=== PATIENT | male | born 1955 | race Caucasian/White ===

== ENCOUNTER 2016-09-21 08:05 | Inpatient (IN) ==
--- NOTE | 2016-09-21 08:33 | PROVIDER DOCUMENTATION ---
HPI-Respiratory General - General Chief Complaint: Shortness of Breath Stated Complaint: SOB Time Seen by Provider: 09/21/16 08:19 Source: patient Allergies/Adverse Reactions: Patient Allergies Allergy/AdvReac Type Severity Reaction Status Date / Time acetaminophen [From NyQuil] Allergy Mild HIVES Verified 04/01/16 06:01 dextromethorphan HBr * Allergy Mild HIVES Verified 04/01/16 06:01 [From NyQuil] doxylamine succinate * Allergy Mild HIVES Verified 04/01/16 06:01 [From NyQuil] pseudoephedrine HCl * Allergy Mild HIVES Verified 04/01/16 06:01 [From NyQuil] Home Medications: Home Medication List Medication Instructions Recorded Confirmed Last Taken Type LISINOpril [Prinivil] 10 mg PO DAILY 02/05/16 04/01/16 03/31/16 History ATORVAstatin [Lipitor] 20 mg PO QHS 03/25/16 04/01/16 03/31/16 18:30 History Metoprolol [Lopressor] 25 mg PO DAILY 03/25/16 04/01/16 04/01/16 04:30 History Aspirin 81 mg PO DAILY #0 04/02/16 04/01/16 03/24/16 Rx Hydrocodone/Acetaminophen [[place] 1 each PO Q6HR PRN #20 tablet 04/02/16 Unknown Rx 10-325 Tablet] Oxybutynin [Ditropan] 5 mg PO TID PRN #15 tablet 04/02/16 Unknown Rx Ciprofloxacin HCl [Cipro] 500 mg PO BID #6 tablet 04/05/16 Unknown Rx - History of Present Illness-Resp Nature of Presenting Problem: Pt has resection of the tail of the pancreas and splenectomy by Dr Allison at [facility] 1 week ago. He was supposed to call him today for a fu appointment, but on Wednesday, 2 days ago he experienced an increasing SOB whcich finally prompted him to come in and be see today. He has been sedentary since the surgery mostly sitting in his recliner or in bed. He suspect for possible PE Onset/Duration: reports: gradual Timing: reports: still present Review of Systems - Adult - REVIEW OF SYSTEMS - ADULT Constitutional: denies: chills, fever Eyes: denies: discharge, decreased vision, blurred vision Ears, Nose, Mouth & Throat: denies: ear pain, nose pain, throat pain Cardiovascular: denies: chest pain, heart murmur, irregular heart rate Respiratory: reports: dyspnea on exertion, shortness of breath. denies: chronic cough, pleurisy Gastrointestinal: denies: abdominal pain, constipation, diarrhea, nausea, vomiting Genitourinary: denies: discharge, frequent UTI's Musculoskeletal: denies: bone pain, joint pain Integumentary: denies: mole changes, rash Neurological: denies: dizziness/vertigo, loss of balance, tremors Psychiatric: reports: no symptoms reported Endocrine: denies: goiter, cold intolerance, heat intolerance Hematologic/Lymphatic: denies: low blood count, lymphedema Allergic/Immunologic: denies: asthma, eczema, frequent infections Past History - Adult - PAST MEDICAL HISTORY-ADULT Review of Records: reports: Nursing Assessment Review, Medications Reviewed - PRIOR SURGERIES/PROCEDURES Surgical/Procedure History: reports: orthopedic (extremity), joint replacement - IMMUNIZATION STATUS Childhood Immunizations: See Nurse Assessment Flu Vaccine: See Nurse Assessment Physical Exam-General - PHYSICAL EXAM-ADULT Initial Vital Signs Reviewed: Yes - CONSTITUTIONAL General Appearance: appears well, alert, mild distress - EYES Eyes: PERRL/EOMI, pink conjunctivae - HEAD, EARS, NOSE, MOUTH & THROAT HENMT: normocephalic/atraumatic, moist mucous membranes, normal ENT inspection - NECK Neck: non-tender, full range of motion, supple, normal inspection - RESPIRATORY Respiratory: chest non-tender, lungs clear, normal breath sounds, no pleuratic chest pain, no respiratory distress, no accessory muscle use - CARDIOVASCULAR Cardiovascular: normal peripheral pulses, regular rate, rhythm, no edema, no gallop, no JVD, no murmur - GASTROINTESTINAL (ABDOMEN) Abdominal Exam: normal bowel sounds, non tender, soft, no organomegaly, no pulsatile mass - LYMPHATIC Lymphatic: no adenopathy - MUSCULOSKELETAL Back Exam: normal inspection, no CVA tenderness, no vertebral tenderness Extremity: normal range of motion, non-tender, normal gait, normal inspection, no pedal edema, no calf tenderness, normal capillary refill - SKIN Integumentary: normal color, normal turgor, warm/dry - NEUROLOGIC Neurologic: ear specialist II-XII nml as tested, grossly normal, no motor/sensory deficits , abnormal cerebellar tests, abnormal ear specialist II-XII - PSYCHIATRIC Psych/Mental Status: normal mood/affect, normal thought content, normal thought process, oriented x 3 Progress - PLAN OF CARE/RESULTS Progress/Plan/Lab Results: Vital Signs - 8 hr 09/21/16 08:10 Temperature 98.2 F Pulse Rate 98 H Respiratory Rate 18 Blood Pressure 145/74 O2 Sat by Pulse Oximetry 89 L Orders Category Date Time Status Cardiac Monitoring DIRECTED Care 09/21/16 08:26 Ordered Oxygen Therapy- ED Nursing DIRECTED Care 09/21/16 08:26 Ordered Saline Loc NOW Care 09/21/16 08:26 Ordered CHEST-2 VIEWS [RAD] Stat Exams 09/21/16 08:26 Ordered CBC WITH ELECTRONIC DIFF [HEME] Stat Lab 09/21/16 08:26 Uncollected CK PROFILE [SP CHEM] Stat Lab 09/21/16 08:26 Uncollected COMPREHENSIVE METABOLIC PANEL [CHEM] Stat Lab 09/21/16 08:26 Uncollected D-DIMER [CHEM] Stat Lab 09/21/16 08:26 Uncollected MAGNESIUM [CHEM] Stat Lab 09/21/16 08:26 Uncollected PRO B-NATRIURETIC PEPTIDE Stat Lab 09/21/16 08:26 Uncollected TROPONIN T Stat Lab 09/21/16 08:26 Uncollected EKG [EKG] Stat Ther 09/21/16 08:08 Ordered EKG [EKG] Stat Ther 09/21/16 08:26 Ordered Departure - Departure Referrals and Follow-Ups: Gla Peralta MD [Primary Care Provider] -
--- NOTE | 2016-09-21 08:45 | ED EKG INTERP ---
This chart was entered by Gladis Mesa Scribe, acting as scribe for Gil Pan MD. EKG Interpretation - EKG Time of EKG reading by physician:: 08:12 EKG Read and Signed by:: Gil Pan EKG Interpretation (*Must complete 3 of following elements*): Abnormal Rate: 93 Rhythm: normal sinus rhythm Comments: nonspecific T wave abnormality This chart was documented by the indicated scribe, (Gladis Mesa Scribe) and accurately reflects the services I performed and decisions made by me, Gil Pan MD, as attested by the provider's signature.
--- NOTE | 2016-09-21 08:58 | Diag Imaging Result Doc PS360 ---
CHEST-1 VIEW - 09/21/2016 INDICATION: SOB TECHNIQUE: COMPARISON: 06/26/2016 FINDINGS: Stable sternotomy wires in place. Heart size and pulmonary vascularity is grossly normal. No focal infiltrates, pneumothorax, or pleural effusion. IMPRESSION: No acute disease or change from prior. Electronically signed by Ciro Reynoso 09/21/2016 8:56 AM
[2016-09-21 09:06] LABS: BASO% 0.8 % (0.0-0.8); EOS# 0.05 X1000 (0.0-0.7); EOS% 0.4 % (0.0-10.0); HEMATOCRIT 28.9 % (42.0-52.0); HEMOGLOBIN 9.3 g/dL (14.0-18.0); IMM GRAN# 0.07 X1000 (0.0-0.04); IMM GRAN% 0.5 % (0.0-0.5); LYMPH% 31.2 % (20.5-51.1); MANUAL DIFF NEEDED? YES; MCH 32.1 PG (27-31); MCHC 32.2 g/dL (33-37); MCV 99.7 FL (81-99); MONO# 0.96 X1000 (0.11-0.59); MONO% 6.8 % (1.7-9.3); MPV 9.6 FL (7.4-10.4); NEUT% 60.3 % (42.2-75.2); PLT 794 X1000 (130-400)
[2016-09-21 09:14] LABS: AGAP 16; ALBUMIN 3.6 g/dL (3.5-5.0); ALKALINE PHOSPHATASE 93 U/L (32-122); BUN 12 mg/dL (8-22); CALCIUM 8.8 mg/dL (8.8-10.2); CHLORIDE 95 mmol/L (98-107); CK PROFILE 33 U/L (24-204); COSMO 269; GOT 16 U/L (10-34); GPT 21 U/L (10-44); MAGNESIUM 2.1 mg/dL (1.5-2.7); POTASSIUM 4.3 mmol/L (3.5-5.1); SODIUM 132 mmol/L (136-145); TCO2 21 mmol/L (25-35); TOTAL PROTEIN 6.8 g/dL (6.3-8.3)
[2016-09-21 09:40] LABS: LYMPHS 10 % (21-51); MONO 4 % (1-9); NRBC 10 % (0-0)
[2016-09-21] MEDS ORDERED: DITROPAN PO PRN (10:05)
[2016-09-21] MEDS ORDERED: ZOFRAN IV PRN (10:05)
[2016-09-21] MEDS ORDERED: NORCO-10 PO PRN (10:05)
[2016-09-21] MEDS ORDERED: LOVENOX 1 MG/KG SUBQ SCH (10:05)
[2016-09-21] MEDS: LOVENOX SUBQ SCH ×2 (11:15→20:11)
[2016-09-21] MEDS: NS + KCL 20 MEQ 1,000 ML IV SCH ×2 (11:15→18:28)
--- NOTE | 2016-09-21 11:19 | Diag Imaging Result Doc PS360 ---
EXAM: ANGIOGRAM/PULMONARY ARTERIES HISTORY: sob, recent surgery TECHNIQUE: Dose reduction protocol COMPARISON: None. FINDINGS: Sternal wires are present. Heart is mildly enlarged. No right-sided pleural effusion there is a small left-sided pleural effusion measuring 2.0 cm posteriorly and inferiorly in the midline. No thoracic aortic aneurysm or dissection. There are filling defects within several pulmonary arteries. These are most pronounced in the right lower lobe. There is atelectasis in the left lower lobe. No consolidation. A 7 mm nodule is found posteriorly in the right lung on image 55. IMPRESSION: 1.Pulmonary emboli 2.Small left effusion 3.Cardiomegaly 4.Enlarged left adrenal gland measuring 3.3 cm 5.A preliminary report was given Electronically signed by Oscar Guadalupe 09/21/2016 11:17 AM
--- NOTE | 2016-09-21 11:48 | HISTORY AND PHYSICAL ---
HISTORY OF PRESENT ILLNESS: Mr. Vazquez was admitted on 09/21/2016. A 60-year-old patient well known to me. He has, this last year, about a year ago, underwent CABG, bypass surgery. He had robotic prostatectomy for prostate cancer. Recently, CT of the abdomen and pelvis, which was done in June here, showed left pleural effusion, stable multiloculated lesion in the pancreatic table, bilateral nephrolithiasis, cystic lesion in external iliac region the right that described as not present on previous study on 02/10/2016. At any rate, he had a biopsy and concerned about pancreatic cancer. Underwent partial pancreatectomy and partial splenectomy. This was on the 11 of September. He has done pretty well at home but started having shortness of breath on Wednesday. The shortness of breath, he is fine sitting still but with any exertion, getting short of breath. Concerned about possible pulmonary thromboembolus. He has had a history of DVT in the past as well as he had a history of asthma and osteoarthritis, with bilateral hip surgeries and had some lower back surgery I believe as well. FAMILY HISTORY: Positive in his mother for osteoarthritis, degenerative lumbar disk disease. His father had prostate cancer, coronary artery disease. SOCIAL HISTORY: Negative for alcohol and tobacco. REVIEW OF SYSTEMS: In general, he has done pretty well postop, on the 11 of September. He still has his drain in. He is supposed to follow up with surgeon sometime I think this coming week, Dr. Muñoz. He has lost weight in the last month over this. No chest pain. Breathing has been comfortable until Wednesday. He has been sleeping in a recliner. Just feels a little more comfortable but not because of breathing issues. PHYSICAL EXAMINATION: VITAL SIGNS: Examination today in the emergency room, temperature 98.2 degrees, pulse 98, respirations 18, blood pressure 145/74. Height is 5 feet 6 inches. O2 saturation was 89%. HEENT: Pupils are equal and round. LUNGS: Clear in all lung linares. CARDIOVASCULAR: Regular rhythm and rate without murmur or S3. LUNGS: Clear anterolateral, posterior. ABDOMEN: Soft. SKIN: Warm and dry. DIAGNOSTIC DATA: White blood cell count was 14,110, hematocrit 28, platelet count 794,000. Chest x-ray, no acute disease or change from prior x-ray. ASSESSMENT AND PLAN: 1. Shortness of breath with exertion. Concerned about possible pulmonary thromboemboli. He does look a little pale. He does have a mild anemia but his hemoglobin is 9.3. We will check noninvasive of both his legs but also think I need to probably look at a pulmonary angiogram. We will see what his kidney function is and hydrate him. At this point, I am going to put him empirically on some Lovenox 1 g per kg subcutaneous every 12 hours. 2. Status post coronary artery bypass graft, history of coronary artery disease. No recent sign of cardiac ischemia. It would be worth getting an echocardiogram again and looking at that as well on this admission. 3. Mild normocytic anemia. Recent surgery. He does look a little pale but I do not see a reason for transfusion at this time. 4. History of prostate cancer, status post prostatectomy. 5. Osteoarthritis, status post bilateral hip replacement, also lower back surgeries. He did fairly well from that standpoint. In fact, he has lost some weight. MEDICATION AT HOME: Lipitor 20 mg a day, aspirin 81 mg a day, Cipro 500 mg twice a day, [place] 10 q.6 hours p.r.n., lisinopril 10 mg a day, Lopressor 25 mg a day, Ditropan 5 mg p.o. t.i.d. p.r.n. We will continue those. cc: Gal Peralta MD
[2016-09-21 12:08] LABS: ALLEN TEST YES; BE -0.2 mmoll (-3.0-3.0); BLOOD TYPE ARTERIAL; DRAW SITE R RADIAL; METHB 1.2 % (0.0-1.5); O2(CT) 16.5 mL/dL (15.0-23.0); PCO2(98.6) 29 mmHg (35-45); PO2(98.6) 56 mmHg (60-100); SAMPLE BLOOD; SAO2 90.9 % (95.0-100.0); THB 13.3 g/dL (11.5-17.4); pH(98.6) 7.49 (7.35-7.45)
[2016-09-21 12:13] LABS: MODALITY CANNULA
--- NOTE | 2016-09-21 15:33 | EKG Report ---
Test Performed on : 09/21/2016 08:12:00 AM Test Reason : sob Blood Pressure : / mmHG Vent. Rate : 093 BPM Atrial Rate : 093 BPM P-R Int : 128 ms QRS Dur : 096 ms QT Int : 402 ms P-R-T Axes : 002 019 -04 degrees QTc Int : 499 ms Normal sinus rhythm. Nonspecific T wave abnormality Abnormal ECG When compared with ECG of 06-FEB-2016 09:01, premature atrial complexes. are no longer present Vent. rate has increased BY 34 BPM T wave inversion now evident in Anterior leads QT has lengthened Unconfirmed Result
[2016-09-21] MEDS: LIPITOR PO SCH (20:10)
[2016-09-21] MEDS: CIPRO PO SCH (20:10)
[2016-09-22] MEDS: NS + KCL 20 MEQ 1,000 ML IV SCH ×4 (02:56→19:04)
[2016-09-22 05:26] LABS: BASO% 0.4 % (0.0-0.8); HEMATOCRIT 27.6 % (42.0-52.0); HEMOGLOBIN 8.9 g/dL (14.0-18.0); IMM GRAN# 0.07 X1000 (0.0-0.04); IMM GRAN% 0.7 % (0.0-0.5); LYMPH# 4.07 X1000 (1.2-3.4); LYMPH% 39.4 % (20.5-51.1); MANUAL DIFF NEEDED? YES; MCH 31.9 PG (27-31); MCHC 32.2 g/dL (33-37); MCV 98.9 FL (81-99); MONO# 0.79 X1000 (0.11-0.59); MONO% 7.6 % (1.7-9.3); MPV 9.8 FL (7.4-10.4); NEUT% 50.9 % (42.2-75.2); PLT 756 X1000 (130-400); RBC 2.79 XMIL (4.7-6.1)
[2016-09-22 05:34] LABS: INR 1.12; PROTIME 11.9 Seconds (9.2-11.7); PTT 36.6 Seconds (22.0-36.0)
[2016-09-22 06:04] LABS: AGAP 12; ALBUMIN 3.2 g/dL (3.5-5.0); ALKALINE PHOSPHATASE 84 U/L (32-122); BUN 10 mg/dL (8-22); CALCIUM 8.6 mg/dL (8.8-10.2); CHLORIDE 100 mmol/L (98-107); CK PROFILE 29 U/L (24-204); COSMO 270; GOT 14 U/L (10-34); GPT 16 U/L (10-44); MAGNESIUM 2.1 mg/dL (1.5-2.7); POTASSIUM 4.7 mmol/L (3.5-5.1); SODIUM 134 mmol/L (136-145); TCO2 22 mmol/L (25-35); TOTAL PROTEIN 6.1 g/dL (6.3-8.3)
[2016-09-22 06:56] LABS: BANDS 2 % (0-1); LYMPHS 20 % (21-51); MONO 10 % (1-9); NRBC 12 % (0-0)
[2016-09-22 06:57] LABS: HYPOCHROM 1+; LARGE PLATELETS 2+
--- NOTE | 2016-09-22 08:30 | PROGRESS NOTE ---
DATE: 09/22/2016 SUBJECTIVE: He had a good night. Breathing comfortably. Remains afebrile. PHYSICAL EXAMINATION: Vital Signs: Temperature 98.5 degrees, pulse 83, respirations 16, blood pressure 158/73. Lungs: Are clear in all lung linares. Cardiovascular Examination: Regular rhythm and rate without murmur or S3. Abdomen: Soft. Skin: Is warm and dry. Is and Os: Good urine output. LABORATORY DATA: Reviewed lab from yesterday. Blood sugars 184, 152. White blood cell count this morning 10,340, hematocrit 27, platelet count 756,000. Sodium 134, potassium 4.7, chloride 100, bicarb 22, BUN 10, creatinine 0.7, blood sugar 143, 152, 169. ASSESSMENT AND PLAN: 1. Pulmonary emboli, small left pleural effusion, enlarged left adrenal gland - measures 3.3 cm. Aware. Left deep venous thrombosis with a small deep venous thrombosis in the right. On Lovenox. We will start Coumadin. 2. Status post pancreatic tail resection with partial splenectomy. Has a drain in. This was done by Dr. Ariza at [facility]. We will ask Dr. Sonu Lua to kind of help follow along. Still waiting on the pathology report from there. 3. Status post prostatectomy. 4. Had coronary artery bypass graft bypass surgery last year. No sign of chest pain or active cardiac ischemia. We will start the Coumadin tonight. cc: Gal Peralta MD
[2016-09-22] MEDS: LOPRESSOR PO SCH (08:40)
[2016-09-22] MEDS: ASPIRIN PO SCH (08:40)
[2016-09-22] MEDS: PRINIVIL PO SCH (08:40)
[2016-09-22] MEDS: LOVENOX SUBQ SCH ×2 (08:41→21:37)
[2016-09-22] MEDS: CIPRO PO SCH ×2 (08:49→21:36)
--- NOTE | 2016-09-22 10:51 | ECHO REPORT ---
ORDER DATE: 09/21/2016 MEASUREMENTS: 1. Left ventricular end-diastolic diameter 5.4 and systolic diameter 4.6. 2. Posterior wall 1.3. 3. Septal thickness 1.4. 4. Left atrium 3.9. 5. Aortic root 4.4. SUMMARY OF 2-DIMENSIONAL IMAGIN. A technically difficult study with fair quality parasternal windows, but limited apical acoustic window quality. 2. Minimal sclerosis of trileaflet aortic valve demonstrated with normal aortic valve opening evident and peak gradient of 10 mmHg. There is trace aortic regurgitation. The posterior mitral leaflet appears somewhat elongated with mild prolapse of the mid to tip portion of the posterior leaflet. There is also focal sclerosis involving chordal attachment just beneath the midportion of the posterior mitral leaflet. There is mild mitral regurgitation. Tricuspid and pulmonic valves are without structural abnormality, with mild tricuspid regurgitation and mild pulmonic insufficiency. The estimated systolic PA pressure by Doppler is 55 mmHg. The aortic root is mildly enlarged. 3. Normal left ventricular chamber size with mild concentric left ventricular hypertrophy is suggested. Estimated left ventricular ejection fraction appears to be at least 60%. No regional wall abnormalities evident. Doppler suggests grade 1 left ventricular diastolic dysfunction. Left atrium is borderline enlarged. The right atrium and right ventricle are normal in size with normal right ventricular systolic function. 4. No pericardial effusion. 5. Inferior vena cava not well demonstrated. CONCLUSIONS: 1. Technically difficult study. 2. Mild posterior mitral leaflet prolapse with mild mitral regurgitation. 3. Mild tricuspid regurgitation with moderate pulmonary hypertension by Doppler. 4. Mild concentric left ventricular hypertrophy with estimated left ventricular ejection fraction at least 60%. 5. Grade 1 left ventricular diastolic dysfunction suggested. 6. Borderline left atrial enlargement. 7. Mild aortic root enlargement. cc: MD Gal Larsen MD
[2016-09-22] MEDS: COLACE PO SCH ×2 (12:50→21:36)
[2016-09-22] MEDS: COUMADIN PO SCH (21:36)
[2016-09-22] MEDS: LIPITOR PO SCH (21:37)
[2016-09-23] MEDS: NS + KCL 20 MEQ 1,000 ML IV SCH ×3 (03:26→21:05)
[2016-09-23 05:50] LABS: AGAP 12; BUN 10 mg/dL (8-22); CALCIUM 8.5 mg/dL (8.8-10.2); CHLORIDE 99 mmol/L (98-107); COSMO 268; POTASSIUM 5.1 mmol/L (3.5-5.1); SODIUM 133 mmol/L (136-145); TCO2 22 mmol/L (25-35)
[2016-09-23] MEDS: MIRALAX PO SCH (09:16)
[2016-09-23] MEDS: PRINIVIL PO SCH (09:16)
[2016-09-23] MEDS: ASPIRIN PO SCH (09:16)
[2016-09-23] MEDS: CIPRO PO SCH ×2 (09:16→21:05)
[2016-09-23] MEDS: LOPRESSOR PO SCH (09:16)
[2016-09-23] MEDS: COLACE PO SCH ×2 (09:16→21:06)
--- NOTE | 2016-09-23 09:17 | PROGRESS NOTE ---
DATE: 09/23/2016 SUBJECTIVE: Mr. Vazquez is anxious to get up out of the bed, get a shower, and move around. His drain was removed. We did get a path report. Apparently in the middle of the cyst he had a 4 mm adenocarcinoma. I will ask oncology to look over and advise. Will let him kind of move around a little more, waiting on his Coumadin and protime to be therapeutic. Continue the Lovenox for now. He is breathing comfortably. Feels good. OBJECTIVE: Vital signs: Temp 98.1 degrees, pulse 78, respirations 20, blood pressure 159/77. Neck: CVP less than 6 cm. Lungs: Clear in all lung linares. Cardiovascular: Regular rhythm and rate without murmur or S3. Abdomen: Soft. Drain is removed. Some padding over the left upper quadrant. Skin: Warm and dry. Extremities: Legs, no pain. No swelling. There is some superficial varicosities appreciated. : Urine output is 5 L. LAB: Reviewed. White count 10,340, hematocrit 27, platelet count 756,000. Chemistry: Sodium 133, potassium 5.1, chloride 99, bicarb 22, BUN 10, creatinine 0.7, blood sugar is 131, 137, 141. ASSESSMENT AND PLAN: 1. Pulmonary emboli with small left pleural effusion. Continue Lovenox. We also found DVT, most prominent on the left side. So, he was started on Coumadin and Lovenox bridge. 2. Pancreatic resection, splenectomy. Found the pathology inside the cyst was a 4 mm adenocarcinoma. Will last Dr. Ross to advise on whether he needs further treatment. 3. Status post prostatectomy. 4. History of coronary bypass graft a year ago. Reviewed his orders. I do not see any change at this point. cc: Gal Peralta MD
--- NOTE | 2016-09-23 09:22 | Extremity Venous Study ---
PROCEDURE NAME: Venous U/S Bilateral Legs - 09/21/2016 PROCEDURE: Bilateral lower extremity venous duplex study. DATE OF STUDY: 09/21/2016. REFERRING PHYSICIAN: Dr. Peralta. READING PHYSICIAN: Dr. Nails. RUNNER OUT: Gil. INDICATIONS: Shortness of breath and PE. FINDINGS: The right common femoral, superficial femoral, deep femoral, greater saphenous, popliteal, posterior tibial and peroneal veins were imaged throughout their course. They are compressible and patent and without thrombus. The right gastrocnemius vein, however, is thrombosed. The left common femoral, deep femoral, superficial femoral, greater saphenous, and peroneal veins are compressible, patent and without thrombus. The left popliteal and posterior tibial veins, however, are thrombosed and without flow or compressibility. INTERPRETATION: There is acute deep vein thrombosis of the right gastrocnemius, left popliteal and left posterior tibial veins. There is no superficial venous thrombosis. The report was given to Dr. Peralta. cc: MD Gal Collins MD
[2016-09-23] MEDS: LOVENOX SUBQ SCH ×2 (11:36→21:05)
--- NOTE | 2016-09-23 13:53 | CONSULTATION ---
DATE OF CONSULTATION: 09/23/2016 REQUESTING PHYSICIAN: Dr. Peralta. REASON FOR CONSULTATION: DVT, pulmonary embolism. Pancreatic cancer. CHIEF COMPLAINT: The patient presented with shortness of breath. HISTORY OF PRESENT ILLNESS: Patient is a pleasant 60-year-old male, who underwent a partial pancreatectomy and splenectomy on 09/11/2016. He presented with new onset of shortness of breath. A CT angiogram was subsequently performed, which revealed several pulmonary embolus. Doppler ultrasound was performed which revealed lower extremity DVT. He is on Lovenox and Coumadin at this time. He reports that his symptoms are somewhat better. Apparently he was noted to have a multiloculated lesion in the pancreas. He saw Dr. Yun and was sent to Dr. Watkins. Endoscopic ultrasound was performed. I do not have those results at this time. He was subsequently sent to Dr. Ariza at [facility] and underwent partial pancreatectomy and splenectomy. It was reported to him that he had a 3-4 mm focus of adenocarcinoma within the cyst. He seems to be recovering well from his abdominal surgery. PAST MEDICAL HISTORY: CAD, prostate cancer. PAST SURGICAL HISTORY: CABG, robotic prostatectomy, recent pancreatic resection. SOCIAL HISTORY: Patient is and lives with his . He denied smoking , alcohol or substance abuse. FAMILY HISTORY: Positive for osteoarthritis, CAD, prostate cancer. ALLERGIES: Dextromethorphan, acetaminophen. CURRENT MEDICATIONS: 1. [place]. 2. Aspirin. 3. Lipitor. 4. Cipro. 5. Colace. 6. Lovenox. 7. Prinivil. 8. Lopressor. 9. Ditropan. 10. Coumadin. REVIEW OF SYSTEMS: As dictated above. All other review of systems are negative. PHYSICAL EXAMINATION: General: The patient is a well-developed, well- nourished male, in no acute distress. Vital Signs: Temperature 98.1 degrees, pulse 78, blood pressure 159/ 77. HEENT: EOMI. PERRLA. Anicteric. Mucous membranes appear moist. Cardiac Exam: Regular rate and rhythm. Normal S1, S2. Chest: Clear to auscultation. Abdomen: Soft, nontender, without hepatosplenomegaly or masses. Surgical site is appearing well. Lymph node survey is negative. Extremities: Reveal mild edema in the left lower extremity. Neurological: Alert and oriented x3. No focal motor deficits. LABORATORY DATA: White count 10.3, hemoglobin 8.9, hematocrit 27, MCV 98, platelets 756,000. D- dimer greater than 21. BUN 10, creatinine 0.7. Glucose 141, LFTs are normal. CT angiogram: Filling defects noted within several pulmonary arteries, more pronounced in the right lower lobe. Small left pleural effusion. Lower extremity Doppler ultrasound: Acute DVT of the right gastrocnemius, left popliteal and left posterior tibial veins. ASSESSMENT/PLAN: 1. Deep venous thrombosis/Pulmonary embolism: The patient has developed a postoperative deep venous thrombosis/pulmonary embolism. Continue anticoagulation as you are doing. I have discussed newer anticoagulants including Xarelto/Eliquis as an alternative to Coumadin and the patient is interested in it. He will check into insurance coverage and let me know and will plan further management accordingly. In the meanwhile, continue as you are doing. 2. Pancreatic adenocarcinoma: Patient has undergone resection of his pancreas and spleen recently. We will try to obtain pathology results from [facility] and go from there. If it was indeed a small focus of cancer, he will not require any further therapy from that standpoint. 3. Prostate cancer status post prostatectomy: Followed by Dr. Walker. Reports that his last PSA was 0.00. 4. Anemia: Check a full anemia profile today. 5. Thrombocytosis: Most likely reactive to health issues within the last few weeks. Continue to simply monitor for now. cc: MD Mao Steward MD Allen J. Schmidt, MD John D. Christein MTDD
[2016-09-23] MEDS: TYLENOL PO PRN ×2 (15:41→21:06)
--- NOTE | 2016-09-23 16:18 | CONSULTATION ---
DATE OF CONSULTATION: 09/23/2016 CONCLUSION: Dr. Peralta has asked me to see the patient. He has a drain in his abdomen following a partial pancreatectomy and splenectomy. It was draining purulent fluid and a culture from the abdomen is growing gram-negative rods which has not yet been identified. RECOMMENDATIONS: The patient has been on Cipro and his white count has normalized and he is afebrile, therefore, I think whatever the patient is growing from the culture it seems that it is susceptible to Cipro, and I think this would be a reasonable drug to continue, and to send the patient home on. I suggest continuing it for at least a total of 2 weeks. I suspect the patient may have had a small intra-abdominal abscess which has been drained. DISCUSSION: The patient has had recently very severe illnesses. His most recent one was pancreatic cancer. The patient underwent surgery at [facility] for this. Postoperatively he developed shortness of breath and was admitted to the hospital here. The patient's pulmonary angiogram shows multiple pulmonary emboli and Doppler venous study of the leg showed deep venous thromboses in the legs. The patient has become afebrile, he is not running a fever and his white count has normalized also. His CBC for today shows a white count of 10,340, hemoglobin 8.9, and platelet count 756,000. Patient's creatinine is 0.7. GFR is greater than 60. Blood gases show a pH of 7.49. PO2 of 56, and a pCO2 of 29. Chest x-ray shows no acute disease. A culture of the Anibal- Paredes drainage fluid grew gram-negative rods. PAST MEDICAL HISTORY/REVIEW OF SYSTEMS: Eyes and Ears: The patient can hear and see okay. Neck: No stiffness. Respiratory: See present illness. Cardiac: No chest pain or palpitations. Gastrointestinal: No nausea, vomiting, or diarrhea. Genitourinary: No dysuria or flank pain. Neurologic: No seizures or loss of motor or sensory function. Hematologic: The patient now is anemic. He does not have a bleeding tendency. The remainder of the patient's review of systems was completed and was negative. PREVIOUS HOSPITALIZATIONS AND OPERATIONS: He has had coronary bypass grafting, robotic prostatectomy for prostate cancer, partial pancreatectomy and splenectomy for pancreatic cancer, bilateral hip surgeries and low back surgery. MEDICAL DISEASES: Positive for hypertension, hyperlipidemia, deep venous thrombosis, pulmonary embolus, prostate cancer, myocardial infarction, asthma, hyperlipidemia and osteoarthritis. INFECTIOUS DISEASE: History is positive for pneumonia and UTI. FAMILY HISTORY: Positive for diabetes mellitus, hypertension, myocardial infarction, and cancer. SOCIAL HISTORY: The patient is . He has dogs for pets. He does not drink alcoholic beverages, smoke cigarettes or abuse drugs. He works at [employer]. ALLERGIES: He has an allergy to NyQuil. MEDICATIONS TAKEN AT HOME: Protonix, Reglan, lisinopril, Docusate and Lipitor. PHYSICAL EXAMINATION: Vital Signs: Temperature is 98.2 degrees, pulse 88, respirations 16, blood pressure 141/76. Patient is 5 feet 6 inches tall, weighs 211 pounds. General: This is a somewhat ill-appearing, middle-aged male. He is in no acute distress. Head, eyes, ears, nose, and throat: He can hear my spoken words and see near objects. No drainage noted from the nose or ears. Neck: No meningismus. Thorax: No increased AP diameter to the chest. Lungs: Clear to auscultation. Cardiovascular: Regular heart rate. Abdomen: Soft and nontender. The patient's abdominal incision is intact. There is no erythema around it. Neurologic: Patient is alert. He can move his extremities. There is no tremor. His sensation is intact to touch. His memory regarding his medical history appears intact. Integument: No rash noted. Thank you for the consultation. cc: Bebeto Laird MD
[2016-09-23] MEDS: LIPITOR PO SCH (21:05)
[2016-09-23] MEDS: COUMADIN PO SCH (21:06)
[2016-09-24 05:18] LABS: RETIC% 3.19 % (0.8-2.1); RETIC-HE 24.1 PG (28.2-36.6)
[2016-09-24 05:23] LABS: INR 1.4
[2016-09-24] MEDS: NS + KCL 20 MEQ 1,000 ML IV SCH ×3 (05:40→21:20)
[2016-09-24 05:54] LABS: IRON SATURATION 10 %; TIBC 202 ug/dL; TOTAL IRON 20 ug/dL (53-167); UNBOUND IRON 182 ug/dL (112-346)
[2016-09-24 06:18] LABS: FERRITIN 690 ng/mL (30-400)
[2016-09-24 07:53] LABS: BASO% 0.3 % (0.0-0.8); EOS# 0.12 X1000 (0.0-0.7); EOS% 1.2 % (0.0-10.0); HEMATOCRIT 27.7 % (42.0-52.0); HEMOGLOBIN 8.6 g/dL (14.0-18.0); IMM GRAN# 0.07 X1000 (0.0-0.04); IMM GRAN% 0.7 % (0.0-0.5); LYMPH# 2.65 X1000 (1.2-3.4); LYMPH% 25.9 % (20.5-51.1); MANUAL DIFF NEEDED? NO; MONO# 0.79 X1000 (0.11-0.59); MONO% 7.7 % (1.7-9.3); MPV 10.2 FL (7.4-10.4); NEUT% 64.2 % (42.2-75.2); PLT 848 X1000 (130-400); RBC 2.77 XMIL (4.7-6.1)
--- NOTE | 2016-09-24 08:09 | PROGRESS NOTE ---
DATE: 09/24/2016 PRESENT ILLNESS: The patient is status post surgery for pancreatic cancer. He had a drain on the left side of the abdomen, and it was draining purulent fluid presumably because the patient had an infection in that area. The drain is out. The patient, last night, said his temperature went up to 100, which is confirmed by looking at the vital signs and, also, he is having chills and having abdominal pain. I am concerned that the patient has an abscess that has not been drained fully. MEDICATIONS: The patient is receiving p.o. Cipro. PHYSICAL EXAMINATION: Vital Signs: Temperature maximum is 100; now it is 98. Pulse 73, respirations 18, blood pressure 151/63. Generally, this is an ill-appearing, middle-aged male. He is in no acute distress. Lungs are clear to auscultation. Cardiovascular: Heart rate is regular. Abdomen is soft, but he is tender in the upper part of his abdomen. His incision is intact. The drain site is not draining anything, and it is not erythematous. LABORATORY DATA AND X-RAY: There is no CBC or BMP today. There is no new x-ray today. ASSESSMENT AND PLAN: As mentioned above, I am concerned the patient still has an abdominal abscess. My plan today is to get a CT scan of the abdomen, CBC and a BMP. Hopefully, we will get the identification and susceptibility of the organism that is causing the purulent drainage today and see if there needs to be a change in the antibiotic treatment or if there is an abscess which requires further drainage. The patient's comorbidities include the following: He is status post surgery for pancreatic cancer. He also has deep venous thrombosis and pulmonary emboli. cc: Bebeto Laird MD MTDD
[2016-09-24 08:18] LABS: AGAP 14; BUN 11 mg/dL (8-22); CALCIUM 8.4 mg/dL (8.8-10.2); CHLORIDE 100 mmol/L (98-107); COSMO 271; POTASSIUM 5.3 mmol/L (3.5-5.1); SODIUM 135 mmol/L (136-145); TCO2 21 mmol/L (25-35)
[2016-09-24] MEDS ORDERED: COUMADIN PO SCH (08:19)
--- NOTE | 2016-09-24 08:41 | PROGRESS NOTE ---
DATE: 09/24/2016 SUBJECTIVE: Mr. Vazquez said the pain eased up some about 1 o'clock and came back a little bit during the night, and it feels like spasm in the epigastric area and it feels like it did right after surgery. The pain has eased up again this morning. He is breathing comfortably. Remains afebrile. OBJECTIVE: Vital signs: Temperature 98.9 degrees, pulse 70, respirations 18, blood pressure 138/69. Lungs: Clear in all lung linares. Cardiovascular exam: Regular rhythm and rate without murmur or S3. Abdomen: Soft. Skin: Warm and dry. : Urine output was 1700 mL. Blood sugar 186, 114 and 155. LAB: White count 10,250, hematocrit 27, platelet count 848,000. No recent electrolytes. Blood sugar 114 and 141. ASSESSMENT AND PLAN: 1. Status post surgery for pancreatic cancer. Tail of pancreas removed. Partial splenectomy. Had a drain on the left side of the abdomen and is draining purulent fluid, questionable whether it was colonization. The question is whether it is an infection in that area. He is on blood thinner. Drain was pulled. Having what sounds like some spasm. I suspect it is the pancreatic sphincter, but this seems to be improving. We will check a CT of the abdomen. The patient receiving oral Cipro at the present time. The culture grew out apparently Pseudomonas. We need to do a CT of the abdomen and make sure there is no abdominal abscess. 2. Pulmonary emboli. Continues blood thinner. There has been discussion on the inferior vena cava umbrella, but will hold off on that and see how he does clinically. 3. History of prostate cancer status post prostatectomy. 4. Coronary artery bypass graft surgery a year ago. No sign of coronary ischemia. He is on Coumadin 10 mg at bedtime, MiraLAX 17 g daily, Ditropan 5 mg p.o. t.i.d. p.r.n., Lopressor 25 mg daily, getting normal saline with 20 mEq of KCl at 125 mL an hour, Colace 100 mg b.i.d., Cipro 500 mg p.o. b.i.d., Lipitor 20 mg at bedtime, aspirin 81 mg a day. cc: Gal Peralta MD
[2016-09-24] MEDS: ASPIRIN PO SCH (11:06)
[2016-09-24] MEDS: LOPRESSOR PO SCH (11:06)
[2016-09-24] MEDS: CIPRO PO SCH ×2 (11:06→21:19)
[2016-09-24] MEDS: COLACE PO SCH ×2 (11:06→21:19)
[2016-09-24] MEDS: PRINIVIL PO SCH (11:06)
[2016-09-24] MEDS: MIRALAX PO SCH (11:10)
[2016-09-24] MEDS: LOVENOX SUBQ SCH ×2 (11:10→21:20)
--- NOTE | 2016-09-24 11:37 | Diag Imaging Result Doc PS360 ---
ABDOMEN/PELVIS W/CONTRAST - 09/24/2016 INDICATION: abdominal abscess TECHNIQUE: A CT dose reduction protocol was used. COMPARISON: 07/06/2016 FINDINGS: There is a small left pleural effusion and some atelectasis in the left lung base. There is also some linear atelectasis in the right lower lobe. There are stable sternotomy wires. Heart size is top normal. There has been distal pancreatectomy and splenectomy. There is a very small amount of fluid in this surgical bed. The largest collection area measures about 3 x 2 cm. There is a left adrenal mass measuring 3.1 x 3 cm that was not present on the prior CT. The liver and gallbladder remain normal. Stable nonobstructing bilateral renal stones. No bowel obstruction or free air. No peritoneal free fluid. There are some scattered diverticula of the sigmoid colon. Stable cystic area at the right internal inguinal ring. Stable bilateral hip replacements. There are moderate degenerative changes of the spine. No acute or suspicious bony lesion. IMPRESSION: 1. Distal pancreatectomy and splenectomy. Very small amount of fluid in the pancreatectomy bed. 2. Small left pleural effusion. Left basilar atelectasis. 3. Left adrenal mass which was not present on 07/06/2016. Etiology unclear. Electronically signed by Ciro Reynoso 09/24/2016 11:34 AM
[2016-09-24] MEDS ORDERED: VENOFER IV ONE (15:30)
[2016-09-24] MEDS ORDERED: BENADRYL IV ONE (15:31)
--- NOTE | 2016-09-24 15:37 | PROGRESS NOTE ---
DATE: 09/24/2016 CHIEF COMPLAINT/HISTORY OF PRESENT ILLNESS: The patient reports after removing his drain tube he has had pain in his pancreatic area, which was pretty significant yesterday, but seems to be improving this morning. Otherwise, no other complaints. PHYSICAL EXAMINATION: Vital Signs: Temperature 98.0 degrees, pulse 79, blood pressure 149/79. Eyes: EOMI. PERRLA. Anicteric. ENT: Mucous membranes are moist. Cardiac Exam: Regular rate and rhythm. Normal S1, S2. Chest: Clear to auscultation. Abdomen: Soft, nontender, without hepatosplenomegaly or masses. LABORATORY DATA: White count 10.2, hemoglobin 8.6, hematocrit 27, platelets 848. Reticulocyte count 3.1. ESR 97. Iron 20, percent saturation 10, TIBC 202. B 12 and folate adequate. RADIOLOGICAL DATA: CT abdomen and pelvis: Distal pancreatectomy and splenectomy. Small amount of fluid in the pancreatic bed. Small pleural effusion. Left adrenal mass measuring 3.1 x 3 cm. ASSESSMENT AND PLAN: 1. Deep vein thrombosis/pulmonary embolus: Continue Lovenox. The patient is interested in transitioning to Xarelto. If it looks like his insurance covers the drug with a small co-pay. I will discuss with Dr. Peralta and consider changing to Xarelto. 2. Pancreatic carcinoma: After discharge, will obtain his records and review and plan further management. I do not think he will require adjuvant therapy. 3. Prostate cancer: Status post prostatectomy. 4. Anemia: He seems to have iron deficiency. Proceed with intravenous iron times one. His ESR is also significantly elevated, which is surely causing some amount of marrow suppression. 5. Thrombocytosis: Multifactorial. Proceed with intravenous iron which may help. 6. Left adrenal mass: This may be benign or malignant. Consider obtaining a PET scan and plan further management accordingly. cc: Dave Ross MD
[2016-09-24] MEDS ORDERED: BENADRYL ONE (16:06)
[2016-09-24] MEDS ORDERED: VENOFER 500 MG in NS 250 ML IV ONE (17:00)
[2016-09-24] MEDS: LIPITOR PO SCH (21:19)
[2016-09-24] MEDS: TYLENOL PO PRN (21:44)
[2016-09-25] MEDS: NS + KCL 20 MEQ 1,000 ML IV SCH (05:17)
[2016-09-25 06:03] LABS: AGAP 12; ALBUMIN 3.1 g/dL (3.5-5.0); ALKALINE PHOSPHATASE 80 U/L (32-122); BUN 10 mg/dL (8-22); CALCIUM 8.5 mg/dL (8.8-10.2); CHLORIDE 99 mmol/L (98-107); COSMO 268; GOT 16 U/L (10-34); GPT 15 U/L (10-44); POTASSIUM 4.3 mmol/L (3.5-5.1); SODIUM 134 mmol/L (136-145); TCO2 23 mmol/L (25-35); TOTAL BILIRUBIN 0.37 mg/dL (0.20-1.00)
[2016-09-25 06:10] LABS: INR 2.35; PROTIME 26.1 Seconds (9.2-11.7)
[2016-09-25 07:36] VITALS: BP 153/59
--- NOTE | 2016-09-25 07:55 | DISCHARGE SUMMARY ---
ADMISSION DATE: 09/21/2016 DISCHARGE DATE: HOSPITAL COURSE: He is a 60-year-old, well known to me. A year ago, he underwent CABG bypass surgery in preparation for prostate robotic prostatectomy. CT scan done in June showed a little left pleural effusion, stable, multiloculated lesion in the pancreatic table, bilateral nephrolithiasis, and cystic lesion in the external iliac region on the right described as not being present on study in 01/21/2016. He went down to [place] and had a biopsy of the pancreatic cyst and found adenocarcinoma. Dr. Ball performed a partial pancreatectomy and partial splenectomy and pathology came back 4 mm adenocarcinoma inside the cyst. He did well postop and went home and then became suddenly short of breath and came in and bilateral pulmonary emboli was found and a left small DVT on the right. He was put on Lovenox bridged to Coumadin. His drain was pulled per Dr. Sonu Lua. He had a little bit of, I think, sphincter pain with spasm and pain for the next 24-36 hours. This improved. ProTime was 26, and he felt much better. Eating well. Bowel still not moving well but better. We did find on follow-up CAT scan of the abdomen and pelvis on 09/24/2016 consistent with a distal pancreatectomy and splenectomy, very small amount of fluid in pancreatomy bed, small left pleural effusion, left basilar atelectasis, left adrenal mass which was present on 07/06/2016. Dr. Ross was consulted. He will follow up in the office. Plan is to do a PET scan and evaluate this left adrenal mass. I will see him back in my office on Wednesday. We will check ProTimes every week for the next 4 weeks. Goal is to keep his INR 2- 2.3. I will give him some Dulcolax suppositories. DISCHARGE MEDICATIONS: 1. [place] 1 p.o. q.6 hours p.r.n. 2. Aspirin 81 mg a day. 3. Lipitor 20 mg a day. 4. We will keep him on Cipro 500 mg p.o. b.i.d. for another 2 weeks. 5. Colace 100 mg p.o. b.i.d. 6. Prinivil 10 mg daily. 7. Lopressor 25 mg a day. 8. Ditropan. He can have 5 mg p.o. t.i.d. p.r.n. bladder spasms. I do not think he has had any trouble with that. 9. MiraLAX 17 g p.o. daily. 10. He will take the Coumadin, and I will keep him at 5 mg at bedtime. 11. I will keep him on his Protonix 40 mg a day as well. cc: Gal Peralta MD
[2016-09-25] MEDS: CIPRO PO SCH (08:59)
[2016-09-25] MEDS: ASPIRIN PO SCH (08:59)
[2016-09-25] MEDS: PRINIVIL PO SCH (08:59)
[2016-09-25] MEDS: LOPRESSOR PO SCH (08:59)
[2016-09-25] MEDS: COLACE PO SCH (08:59)
[2016-09-25] MEDS: MIRALAX PO SCH (09:00)
[2016-09-25] MEDS: LOVENOX SUBQ SCH (09:00)
== END 2016-09-25 10:01 | disposition home or self-care (01) ==
LOC: ED 08:05 → 3S 08:06
PROVIDERS: ATTEND Emergency Medicine